=== PATIENT | male | born 1995 | race Caucasian/White ===

== ENCOUNTER 2023-12-28 17:52 | Emergency (ER) | payer OTHER ==
[2023-12-28 17:59] VITALS: BP 128/65; PULSE 84; RESP 18; TEMP 98.6
--- NOTE | 2023-12-28 18:28 | ED ---
General Adult HPI - General Chief complaint: Trauma Stated complaint: Left thumb wound, dizziness Time Seen by Provider: 12/28/23 18:06 Source: patient, RN notes reviewed Mode of arrival: ambulatory Limitations: no limitations - History of Present Illness Initial comments: 28-year-old male presents emergency department chief complaint of a tissue injury to his left thumb. Patient states that he was cooking dinner when he accidentally cut his left thumb with a knife. Patient denies other injuries at time of this event. He states that his last tetanus vaccination was in the last 5 years. Patient denies paresthesias of the left distal finger. No other acute complaints at this time. - Related Data Previous Rx's Medication Instructions Recorded Cephalexin [Keflex] 500 mg PO Q6HR #40 cap 12/28/23 Allergies Allergy/AdvReac Type Severity Reaction Status Date / Time No Known Allergies Allergy Verified 12/28/23 17:59 Review of Systems ROS Statement: Those systems with pertinent positive or pertinent negative responses have been documented in the HPI. ROS Other: All systems not noted in ROS Statement are negative. Past Medical History Past Medical History: No Reported History History of Any Multi-Drug Resistant Organisms: None Reported Past Surgical History: Orthopedic Surgery Additional Past Surgical History / Comment(s): left arm Past Psychological History: No Psychological Hx Reported Smoking Status: Current every day smoker Past Alcohol Use History: None Reported Past Drug Use History: None Reported General Exam Limitations: no limitations General appearance: alert, in no apparent distress Head exam: Present: atraumatic, normocephalic, normal inspection Eye exam: Present: normal appearance, PERRL, EOMI. Absent: scleral icterus, conjunctival injection, periorbital swelling ENT exam: Present: normal exam, mucous membranes moist Neck exam: Present: normal inspection. Absent: tenderness, meningismus, lymphadenopathy Respiratory exam: Present: normal lung sounds bilaterally. Absent: respiratory distress, wheezes, rales, rhonchi, stridor Cardiovascular Exam: Present: regular rate, normal rhythm, normal heart sounds. Absent: systolic murmur, diastolic murmur, rubs, gallop, clicks GI/Abdominal exam: Present: soft, normal bowel sounds. Absent: distended, tenderness, guarding, rebound, rigid Left Hand Wrist exam: Present: full ROM, tenderness, deformity, other (first distal digit avulsion, lateral) Neuro motor exam: Present: wrist extension intact, thumb opposition intact Vascular: Present: normal capillary refill, radial pulse (2+). Absent: vascular compromise Skin exam: Present: warm, dry, intact, normal color. Absent: rash Course Vital Signs 12/28/23 17:56 Temperature 98.6 F Pulse Rate 84 Respiratory 18 Rate Blood Pressure 128/65 O2 Sat by Pulse 97 Oximetry Medical Decision Making - Medical Decision Making Was pt. sent in by a medical professional or institution (, PA, GAS APPLIANCE INSTALLER, urgent care, hospital, or residential...) When possible be specific @ -No Did you speak to anyone other than the patient for history (EMS, parent, family, police, friend...)? What history was obtained from this source @ -No Did you review nursing and triage notes (agree or disagree)? Why? @ -I reviewed and agree with nursing and triage notes Were old charts reviewed (outside hosp., previous admission, EMS record, old EKG, old radiological studies, urgent care reports/EKG's, residential records)? Report findings @ -No old charts were reviewed Differential Diagnosis (chest pain, altered mental status, abdominal pain women, abdominal pain men, vaginal bleeding, weakness, fever, dyspnea, syncope, headache, dizziness, GI bleed, back pain, seizure, CVA, palpatations, mental health, musculoskeletal)? @ -Differential Musculoskeletal Muscular strain, contusion, ligament sprain, fracture, arthritis, septic arthritis, bursitis, cellulitis, muscle spasm, nerve compression, DVT, arterial occlusion, herpes zoster, electrolyte abnormality, tumor.... This is not meant to be in all inclusive list EKG interpreted by me (3pts min.). @ -None X-rays interpreted by me (1pt min.). @ -None done CT interpreted by me (1pt min.). @ -None done U/S interpreted by me (1pt. min.). @ -None done What testing was considered but not performed or refused? (CT, X-rays, U/S, labs)? Why? @ -XR of the left first digit was nice for the patient undergo due to concern for possible bony injury with the mechanism of the skin avulsion, however patient has declined x-ray imaging states that he does not think it is necessary to undergo a x-ray of the finger. What meds were considered but not given or refused? Why? @ -None Did you discuss the management of the patient with other professionals (professionals i.e. , PA, G[employer] APPLIANCE INSTALLER, lab, RT, psych nurse, social science professor, security risk analyst, teacher, juvenile corrections officer, ed case manager)? Give summary @ -No Was smoking cessation discussed for >3mins.? @ -No Was critical care preformed (if so, how long)? @ -No Were there social determinants of health that impacted care today? How? (Homelessness, low income, unemployed, alcoholism, drug addiction, transportation, low edu. Level, literacy, decrease access to med. care, residential, rehab)? @ -No Was there de-escalation of care discussed even if they declined (Discuss DNR or withdrawal of care, Hospice)? DNR status @ -No What co-morbidities impacted this encounter? (DM, HTN, Smoking, COPD, CAD, Cancer, CVA, ARF, Chemo, Hep., AIDS, mental health diagnosis, sleep apnea, morbid obesity)? @ -None Was patient admitted / discharged? Hospital course, mention meds given and route, prescriptions, significant lab abnormalities, going to OR and other pertinent info. @ -Discharge. 28-year-old male with a avulsion to the left first digit. On examination there is approximately a 2 cm round centimeter avulsion to the left first digit that is not amendable to suture repair. Bleeding has been controlled in the emergency department. Area was thoroughly cleansed with sterile water and Surgifoam was applied over top in addition to multiple layers of gauze. Aluminum form splint placed over the finger. Patient is a day prescription for Keflex to cover for possible infection of the left first digit. Recommended patient use Tylenol, Motrin, rest, ice and elevate the finger over the next few days as well and keep splint in place over the next week to minimize potential reinjury. All questions answered at bedside and strict return parameters as the patient he is verbalized understanding. Discussed with Dr. Banegas Undiagnosed new problem with uncertain prognosis? @ -No Drug Therapy requiring intensive monitoring for toxicity (Heparin, Nitro, Insulin, Cardizem)? @ -No Were any procedures done? @ -No Diagnosis/symptom? @ -finger avulsion Acute, or Chronic, or Acute on Chronic? @ -Acute Uncomplicated (without systemic symptoms) or Complicated (systemic symptoms)? @ -Uncomplicated Side effects of treatment? @ -No Exacerbation, Progression, or Severe Exacerbation? @ -No Poses a threat to life or bodily function? How? (Chest pain, USA, MD, pneumonia, PE, COPD, DKA, ARF, appy, cholecystitis, CVA, Diverticulitis, Homicidal, S uicidal, threat to staff... and all critical care pts) @ -No Disposition Clinical Impression: Finger avulsion Disposition: HOME SELF-CARE Condition: Good Instructions (If sedation given, give patient instructions): Skin Avulsion (ED) Additional Instructions: Return to the emergency department for any new or worsening symptoms. Keep splint in place over the next 2 days. Continue to keep area clean and dry over the next 7 to 10 days. Recommend he follow-up with her primary care provider next week for further evaluation. Prescriptions: Cephalexin [Keflex] 500 mg PO Q6HR #40 cap Is patient prescribed a controlled substance at d/c from ED?: No Referrals: None,Stated [Primary Care Provider] - 1-2 days Time of Disposition: 19:09
[2023-12-28] MEDS: IBUPROFEN 800 MG TAB PO STA (19:17)
== END 2023-12-28 19:25 | disposition home or self-care (01) ==
LOC: EC 17:52
DX: S61.012A Laceration without foreign body of left thumb without damage to nail, initial encounter (principal); F17.200 Nicotine dependence, unspecified, uncomplicated; W26.0XXA Contact with knife, initial encounter
CPT/HCPCS: 99284